=== PATIENT | male | born 1950 | race Hispanic/Latino ===

== ENCOUNTER 2019-02-18 09:46 | Outpatient (CLI) | payer MEDICARE, OTHER ==
--- NOTE | 2019-02-20 08:11 | Vascular Lab Report ---
PROCEDURE: VL AO/IVC/ILIAC DUPLEX LTD TECHNIQUE: Duplex Doppler ultrasound of the aorta, mesenteric vessels and renal arteries. Grayscale, color flow and spectral waveform images were obtained. HISTORY: CHRONS DISEASE; ABD PAIN COMPARISON: None FINDINGS: There is no abdominal aortic aneurysm. Proximal aorta is 2.7 cm diameter. Mid aorta is 2.0 cm matter. Distal aorta is 1.6 cm. Aortic flow velocities are normal. SMA, SPEEDY and celiac trunk, splenic artery and hepatic artery arteries are patent. There is no abnorma l elevation in flow velocity. Renal arteries are patent without abnormal elevation in flow velocity. IMPRESSION: No significant abnormality seen involving aorta or branch arteries. This document is electronically signed by Danisha Clark MD., February 20 2019 08:09:03 AM ET
== END 2019-02-18 09:47 | disposition home or self-care (01) ==
LOC: VAS 09:46
PROVIDERS: ATTEND Surgery Vascular Surgery
DX: K50.80 Crohn's disease of both small and large intestine without complications (principal); K55.8 Other vascular disorders of intestine
CPT/HCPCS: 93979